=== PATIENT | female | born 1955 | race Caucasian/White ===

== ENCOUNTER → 2016-12-09 | Outpatient (CLI) | payer OTHER ==
--- NOTE | 2016-12-10 07:37 | BD ---
EXAMINATION TYPE: MG DEXA axial skeleton. DATE OF EXAM: 12/09/2016 COMPARISON: Previous study dated 04/14/2011. CLINICAL HISTORY: Postmenopausal female. Height: 63 Weight: 177.2 FRAX RISK QUESTIONS: Alcohol (3 or more units per day): no Family History (Parent hip fracture): no Glucocorticoids (More than 3mos): no (Ex: prednisone, prednisolone, methylprednisolone, dexamethasone, and hydrocortisone). History of Fracture in Adulthood: no Secondary Osteoporosis: 1. Type 1 Diabetes: no 2. Hyperthyroidism: no 3. Menopause before 45: no 4. Malnutrition: no 5. Chronic liver disease: no Rheumatoid Arthritis: no Current Tobacco Use: no RISK FACTORS HISTORY OF: Hip Fracture (Right/Left): no Spine Fracture: no History of Wrist Fracture: no Surgery to Spine/Hip(right/left)/Wrist (right/left): no Family History of Osteoporosis: no Active: yes Diet low in dairy products/other sources of calcium: yes Postmenopausal woman: age 53 due to breast cancer Lost more than 2 inches in height since high school: no Frequent falls: no Poor Health: no Hyperparathyroidism: no Adrenal Insufficiency: no MEDICATIONS: none EXAM MEASUREMENTS: Bone mineral densitometry was performed using the [employer]. Bone mineral density as measured about the Lumbar spine is: ----- L1-L4(G/cm2): 1.139 T Score Values are as follows: ----- L2: 0.2 ----- L3: -0.9 ----- L4: -0.9 ----- L1-L4: -0.3 Bone mineral density has: increased 4.0 % since study of:04.14.2011 Bone mineral density about the R hip (g/cm2): 1.026 Bone mineral density about the L hip (g/cm2): 1.030 T Score values are as follows: -----R Neck: -0.1 -----L Neck: -0.1 -----R Total: 0.6 -----L Total: 0.4 Bone mineral density has: decreased 0.2 % since study of: 04.14.2011 IMPRESSION: 1. Normal study. 2. Major osteoporotic fracture risk: 6.2%. 3. Hip fracture risk: 0.2%. NOTE: T-SCORE=SD OF THE YOUNG ADULT MEAN.
== END | disposition home or self-care (01) ==
LOC: RADBDWWP 16:16
PROVIDERS: ATTEND Obstetrics & Gynecology
DX: M89.9 Disorder of bone, unspecified (principal)
CPT/HCPCS: 77080

== ENCOUNTER → 2017-01-13 | Outpatient (CLI) | payer OTHER | END | disposition home or self-care (01) | LOC: LABWHC1 10:02 | PROVIDERS: ATTEND Internal Medicine Interventional Cardiology | DX: E05.90 Thyrotoxicosis, unspecified without thyrotoxic crisis or storm (principal) | CPT/HCPCS: 36415; 84439; 84443 ==

== ENCOUNTER → 2017-01-20 | Outpatient (CLI) | payer OTHER ==
[2017-01-20 14:57] LABS: Anion Gap 10 mmol/L; Blood Urea Nitrogen 12 mg/dL (7-17); Calcium 9.5 mg/dL (8.4-10.2); Carbon Dioxide 28 mmol/L (22-30); Chloride 104 mmol/L (98-107); Glucose 85 mg/dL (74-99); Non-African American GFR(MDRD) >60 (>60 ml/min/1.73 sqM); Potassium 3.9 mmol/L (3.5-5.1); Sodium 142 mmol/L (137-145)
== END | disposition home or self-care (01) ==
LOC: LABWHC1 14:18
PROVIDERS: ATTEND Internal Medicine Interventional Cardiology
DX: I10 Essential (primary) hypertension (principal)
CPT/HCPCS: 36415; 80048

== ENCOUNTER → 2017-10-12 | Outpatient (CLI) | payer OTHER ==
--- NOTE | 2017-10-12 15:47 | XR ---
EXAMINATION TYPE: XR chest 2V DATE OF EXAM: 10/12/2017 COMPARISON: Chest x-ray December 02, 2015 HISTORY: Right-sided breast cancer 2009 TECHNIQUE: Frontal and lateral views of the chest are obtained. FINDINGS: There is chronic parenchymal change in the apices and left lung base without suspicious ne w focal air space opacity, pleural effusion, or pneumothorax seen. The cardiac silhouette size is wi thin normal limits. The osseous structures are intact. Overlying right breast surgical clips are re demonstrated. IMPRESSION: No acute cardiopulmonary process. No significant change from prior study.
== END | disposition home or self-care (01) ==
LOC: RADXRMAIN 15:27
PROVIDERS: ATTEND Internal Medicine Hematology & Oncology
DX: C50.919 Malignant neoplasm of unspecified site of unspecified female breast (principal); I34.1 Nonrheumatic mitral (valve) prolapse; F32.9 Major depressive disorder, single episode, unspecified; Z71.3 Dietary counseling and surveillance
CPT/HCPCS: 71046

== ENCOUNTER 2020-07-20 11:39 | Day surgery (SDC) | payer MEDICARE ==
[2020-07-20 12:43] VITALS: TEMP 98.5
[2020-07-20 14:09] VITALS: BP 124/80; PULSE 86; RESP 16
--- NOTE | 2020-07-20 14:49 | US ---
EXAMINATION TYPE: US biopsy soft tissue/muscle DATE OF EXAM: 07/20/2020 HISTORY: Midline neck cyst, recurrent, R 22.1 FINDINGS: Maximal barrier technique was utilized. Hand hygiene achieved with soap and water and alc ohol-based hand rub. The skin overlying a suitable path to the patient's mass in the anterior midline neck was localized with ultrasound and the overlying skin prepped and draped. Ultrasound was utiliz ed with sterile technique. Lidocaine was used for local anesthesia. A 21-gauge needle advanced unde r direct ultrasound guidance and aspirated specimen obtained of the cyst, cloudy white fluid obtained , partially 3 cc. Specimen submitted to Pathology. Following the procedure, hemostasis achieved and the patient is discharged in stable condition without complication. IMPRESSION:STATUS POST ULTRASOUND GUIDED FINE-NEEDLE ASPIRATION OF MIDLINE NECK CYST, PATHOLOGY IS PE NDING. THIS PROCEDURE IS PERFORMED BY THE UNDERSIGNED.
== END 2020-07-20 14:07 | disposition home or self-care (01) ==
LOC: RADPROMAIN 11:39
PROVIDERS: ATTEND Otolaryngology
DX: R22.1 Localized swelling, mass and lump, neck (principal)
CPT/HCPCS: 20206; 76942; 88173; 88305